=== PATIENT | male | born 1990 | race Caucasian/White ===

== ENCOUNTER 2017-06-10 20:46 | Emergency (ER) | payer SELFPAY ==
[~2017-06-10] VITALS: Ht 177.8 cm; Wt 56.2 kg
[2017-06-10 20:48] VITALS: BP 120/70; PULSE 88; RESP 20; TEMP 97.5; O2SAT 100
--- NOTE | 2017-06-10 21:09 | PD ---
HPI Chief Complaint: Chest Pain Time Seen by Provider: 20:57 Travel History International Travel<30 days: No Contact w/Intl Traveler<30days: No Traveled to known affect area: No History of Present Illness HPI The patient is a 26-year-old male that complains of mid substernal sharp, pleuritic chest pain for 6 days. The pain is on and off. He denies any diaphoresis, nausea, radiation of pain. He smokes 3 cigarettes a day. He does not have any history of heart disease or any other major medical problems. [facility] Social History Tobacco Use: Yes Allergies-Medications (Allergen,Severity, Reaction): Coded Allergies: No Known Allergies (Verified Allergy, Unknown, 06/10/17) Reported Meds & Prescriptions Reported Meds & Active Scripts Active Ibuprofen 600 Mg Tab 600 Mg PO TID Review of Systems Except as stated in HPI: all other systems reviewed are Neg Physical Exam Narrative GENERAL: The patient is alert, oriented 3 and slight apparent distress with his chest pain. His vital signs are normal. SKIN: Focused skin assessment warm/dry. HEAD: Atraumatic. Normocephalic. EYES: Pupils equal and round. No scleral icterus. No injection or drainage. ENT: No nasal bleeding or discharge. Mucous membranes pink and moist. NECK: Trachea midline. No JVD. CARDIOVASCULAR: Regular rate and rhythm. No murmur appreciated. I cannot reproduce the patient's chest pain by pressing on the chest wall. RESPIRATORY: No accessory muscle use. Clear to auscultation. Breath sounds equal bilaterally. GASTROINTESTINAL: Abdomen soft, non-tender, nondistended. Hepatic and splenic margins not palpable. MUSCULOSKELETAL: No obvious deformities. No clubbing. No cyanosis. No edema. NEUROLOGICAL: Awake and alert. No obvious cranial nerve deficits. Motor grossly within normal limits. Normal speech. PSYCHIATRIC: Appropriate mood and affect; insight and judgment normal. Data Data Last Documented VS Vital Signs Date Time Temp Pulse Resp B/P (MAP) Pulse Ox O2 Delivery O2 Flow Rate FiO2 06/10/17 21:20 98 06/10/17 21:20 Room Air 06/10/17 21:00 84 18 06/10/17 20:48 97.5 120/70 (87) Orders Orders Electrocardiogram (06/10/17 21:01) Basic Metabolic Panel (Bmp) (06/10/17 21:01) Ckmb (Isoenzyme) Profile (06/10/17 21:01) Complete Blood Count With Diff (06/10/17 21:) Troponin I (06/10/17 21:) Ecg Monitoring (06/10/17 21:) Iv Access Insert/Monitor (06/10/17 21:) Oximetry (06/10/17 21:01) Oxygen Administration (06/10/17 21:) Aspirin (Aspirin) (06/10/17 21:15) Sodium Chloride 0.9% Flush (Ns Flush) (06/10/17 21:15) Chest, Pa & Lat (06/10/17 21:01) CKMB (06/10/17 21:15) CKMB% (06/10/17 21:15) Al-Mag Hy-Si 40-40-4 Mg/Ml Liq (Mag-Al P (06/10/17 22:00) Lidocaine 2% Viscous (Xylocaine 2% Visco (06/10/17 22:00) Ketorolac Inj (Toradol Inj) (06/10/17 22:00) Labs Laboratory Tests Test 06/10/17 21:15 White Blood Count 12.2 TH/MM3 Red Blood Count 5.08 MIL/MM3 Hemoglobin 15.2 GM/DL Hematocrit 45.2 % Mean Corpuscular Volume 89.0 FL Mean Corpuscular Hemoglobin 29.9 PG Mean Corpuscular Hemoglobin Concent 33.6 % Red Cell Distribution Width 12.6 % Platelet Count 192 TH/MM3 Mean Platelet Volume 8.5 FL Neutrophils (%) (Auto) 82.2 % Lymphocytes (%) (Auto) 11.4 % Monocytes (%) (Auto) 6.1 % Eosinophils (%) (Auto) 0.1 % Basophils (%) (Auto) 0.2 % Neutrophils # (Auto) 10.1 TH/MM3 Lymphocytes # (Auto) 1.4 TH/MM3 Monocytes # (Auto) 0.7 TH/MM3 Eosinophils # (Auto) 0.0 TH/MM3 Basophils # (Auto) 0.0 TH/MM3 CBC Comment DIFF FINAL Differential Comment Blood Urea Nitrogen 8 MG/DL Creatinine 1.10 MG/DL Random Glucose 88 MG/DL Calcium Level 9.2 MG/DL Sodium Level 137 MEQ/L Potassium Level 4.2 MEQ/L Chloride Level 101 MEQ/L Carbon Dioxide Level 29.6 MEQ/L Anion Gap 6 MEQ/L Estimat Glomerular Filtration Rate 82 ML/MIN Total Creatine Kinase 421 U/L Creatine Kinase MB 1.9 NG/ML Creatine Kinase MB % 0.5 % Troponin I LESS THAN 0.02 NG/ML MDM Medical Decision Making Medical Screen Exam Complete: Yes Emergency Medical Condition: Yes Medical Record Reviewed: Yes Interpretation(s) The EKG shows a sinus rhythm of 64 and is normal. The chest x-ray shows no acute cardiopulmonary disease. The CBC shows a white count of 12,200 with 82% neutrophils but is otherwise unremarkable. The basic metabolic profile shows a GFR of 82, total CK of 421 but the troponin I is less than 0.02. The CK-MB and percentage CK-MB are normal. Differential Diagnosis Pericarditis, acute coronary syndrome-unlikely, pleurisy, pneumothorax-unlikely , costochondritis, chest wall pain, esophageal pain, gastrointestinal pain Narrative Course The patient likely has pleurisy. He will be given Motrin 600 mg 3 times daily. He needs to follow-up with a primary care physician. Diagnosis Primary Impression: Pleuritic chest pain Additional Instructions: This appears to be pleuritic type chest pain. This is not heart pain and it is not dangerous pain. If you take 600 mg. ibuprofen 3 times daily 600 mg that she usually goes away in 3 or 4 days. It is also important to quit smoking, this can be contributory to your pain. Med/Other Pt SpecificInfo: Prescription(s) given Scripts Ibuprofen (Ibuprofen) 600 Mg Tab 600 MG PO TID, #44 TAB 0 Refills Prov: Ramiro Waters MD 06/10/17 Disposition: 01 DISCHARGE HOME Condition: Stable Ramiro Waters MD Jun 10, 2017 21:09
[2017-06-10] MEDS ORDERED: SODIUM CHLORIDE 0.9% FLUSH 10 ML FLUSH IVF PRN (21:15)
[2017-06-10] MEDS ORDERED: ASPIRIN 325 MG TAB PO ONE (21:15)
[2017-06-10 21:20] VITALS: O2SAT 98
--- NOTE | 2017-06-10 21:23 | RADRPT ---
EXAM DATE/TIME: 06/10/2017 21:04 [facility] COMPARISON: No previous studies available for comparison. INDICATIONS : Chest pain. MEDICAL HISTORY : None. SURGICAL HISTORY : None. ENCOUNTER: Initial ACUITY: 1 day PAIN SCORE: 5/10 LOCATION: chest substernal. FINDINGS: The lungs are clear without infiltrate, nodule, or mass. There is no appreciable pleural effusion fo r technique. Heart and mediastinum are unremarkable. CONCLUSION: No acute cardiopulmonary disease. Ryan Simpson MD on June 10, 2017 at 21:21 Board Certified Radiologist. This report was verified electronically.
[2017-06-10 21:33] LABS: AUTOMATED NEUTROPHIL # 10.1 TH/MM3 (1.8-7.7); BASOPHIL % 0.2 % (0.0-2.0); EOSINOPHIL % 0.1 % (0.0-4.0); HEMATOCRIT 45.2 % (39.0-51.0); HEMOGLOBIN 15.2 GM/DL (13.0-17.0); LYMPH % 11.4 % (9.0-44.0); LYMPHOCYTE # 1.4 TH/MM3 (1.0-4.8); MEAN CORPUSCULAR HEMOGLOBIN 29.9 PG (27.0-34.0); MEAN CORPUSCULAR HGB CONC 33.6 % (32.0-36.0); MEAN PLATELET VOLUME 8.5 FL (7.0-11.0); MONO % 6.1 % (0.0-8.0); MONOCYTE # 0.7 TH/MM3 (0-0.9); NEUT % 82.2 % (16.0-70.0); PLATELET COUNT 192 TH/MM3 (150-450); RED BLOOD COUNT 5.08 MIL/MM3 (4.50-5.90); RED CELL DISTRIBUTION WIDTH 12.6 % (11.6-17.2); WHITE BLOOD COUNT 12.2 TH/MM3 (4.0-11.0)
[2017-06-10 21:35] LABS: CHLORIDE 101 MEQ/L (98-107); SODIUM (NA) 137 MEQ/L (136-145)
[2017-06-10 21:38] LABS: BICARBONATE 29.6 MEQ/L (21.0-32.0); CALCIUM 9.2 MG/DL (8.5-10.1); GLUCOSE,RANDOM 88 MG/DL (74-106)
[2017-06-10 21:39] LABS: BLOOD UREA NITROGEN 8 MG/DL (7-18)
[2017-06-10 21:42] LABS: GLOMERULAR FILTRATION RATE 82 ML/MIN (>89)
[2017-06-10 21:46] LABS: TROPONIN I LESS THAN 0.02 NG/ML (0.02-0.05)
[2017-06-10] MEDS ORDERED: KETOROLAC TROMETHAMINE 60 MG/2 ML (IM) VIAL IVP ONE (22:00)
[2017-06-10] MEDS ORDERED: LIDOCAINE VISCOUS 2% SOLN 15 ML UDC PO ONE (22:00)
[2017-06-10] MEDS ORDERED: ALUMINUM/MAGNESIUM/SIMETH 30 ML CUP PO ONE (22:00)
[2017-06-10] MEDS ORDERED: IBUP-232 PO (22:03)
[2017-06-10 22:31] VITALS: BP 122/70; PULSE 74; RESP 18; O2SAT 98
--- NOTE | 2017-06-11 09:19 | EKG ---
Date Performed: 06/10/2017 Time Performed: 21:00:56 PTAGE: 26 years EKG: Sinus rhythm WITH SINUS ARRHYTHMIA NORMAL ECG NO PREVIOUS TRACING DOCTOR: Darryn Mata Interpretating Date/Time 06/11/2017 09:18:20
== END 2017-06-10 22:35 | disposition home or self-care (01) ==
LOC: PHED 20:46
DX: R07.81 Pleurodynia (principal); Z72.0 Tobacco use
CPT/HCPCS: 71020; 80048; 82550; 82552; 84484; 85025; 93005; 96374; 99285; J1885

== ENCOUNTER 2017-06-21 18:28 | Emergency (ER) | payer SELFPAY ==
[~2017-06-21] VITALS: Ht 177.8 cm; Wt 61.5 kg
[~2017-06-21 18:28] MED LIST: IBUP-232 PO
[2017-06-21 18:29] VITALS: BP 124/75; PULSE 90; RESP 18; TEMP 98.1; O2SAT 97
--- NOTE | 2017-06-21 19:14 | RADRPT ---
EXAM DATE/TIME: 06/21/2017 18:53 [facility] COMPARISON: CHEST PA & LAT, June 10, 2017, 21:04. INDICATIONS : Chest discomfort and dysphagia. MEDICAL HISTORY : None. SURGICAL HISTORY : None. ENCOUNTER: Initial ACUITY: 2 weeks PAIN SCORE: 2/10 LOCATION: Bilateral chest FINDINGS: PA and lateral views of the chest demonstrate the lungs to be symmetrically aerated without evidence of mass, infiltrate or effusion. The cardiomediastinal contours are unremarkable. Osseous structure s are intact. CONCLUSION: No evidence of acute cardiopulmonary disease. Gianluca Hogue MD on June 21, 2017 at 19:11 Board Certified Radiologist. This report was verified electronically.
--- NOTE | 2017-06-21 20:52 | PD ---
HPI Chief Complaint: Chest Pain Time Seen by Provider: 20:28 Travel History International Travel<30 days: No Contact w/Intl Traveler<30days: No Traveled to known affect area: No History of Present Illness HPI Patient is 26-year-old male reports 3 days progressive scratchy throat getting worse to the point now he feels like he cannot swallow denies choking denies inability to swallow food but he says progressive to where he feels very irritated as if his throat was closing. PFSH Past Medical History Diminished Hearing: No Social History Alcohol Use: Yes (social) Tobacco Use: Yes Substance Use: No Allergies-Medications (Allergen,Severity, Reaction): Coded Allergies: No Known Allergies (Verified Allergy, Unknown, 06/21/17) Reported Meds & Prescriptions Reported Meds & Active Scripts Active Diphenhydramine Liq (Diphenhydramine HCl) 12.5 Mg/5 Ml Elix 12.5 Mg PO Q6H PRN Physical Exam Narrative GENERAL: no distress O2 sat normal SKIN: Warm and dry. HEAD: Atraumatic. Normocephalic. EYES: Pupils equal and round. No scleral icterus. No injection or drainage. ENT: No nasal bleeding or discharge. Mucous membranes pink and moist. no exudate no signs of infection no obvious narrowing NECK: Trachea midline. No JVD. CARDIOVASCULAR: Regular rate and rhythm. RESPIRATORY: No accessory muscle use. Clear to auscultation. Breath sounds equal bilaterally. GASTROINTESTINAL: Abdomen soft, non-tender, nondistended. Hepatic and splenic margins not palpable. MUSCULOSKELETAL: Extremities without clubbing, cyanosis, or edema. No obvious deformities. NEUROLOGICAL: Awake and alert. No obvious cranial nerve deficits. Motor grossly within normal limits. Five out of 5 muscle strength in the arms and legs. Normal speech. PSYCHIATRIC: Appropriate mood and affect; insight and judgment normal. Data Data Last Documented VS Orders Orders Electrocardiogram (06/21/17 ) Chest, Pa & Lat (06/21/17 ) Wgr-Dzts-Pk-Mg-Simeth Liq (Magic Mouthwa (06/21/17 21:00) Soft Tissue Neck (06/21/17 ) Group A Rapid Strep Screen (06/21/17 20:49) Influenzae A/B Antigen (06/21/17 20:50) Strep Culture (Group A) (06/21/17 21:25) Ed Discharge Order (06/21/17 22:56) [facility] Medical Decision Making Medical Screen Exam Complete: Yes Emergency Medical Condition: Yes Differential Diagnosis Strep pharyngitis versus bacterial tracheitis versus influenza versus foreign body esophagus versus viral infection Narrative Course Patient's lateral soft tissue neck has no signs of any narrowing of the airway his rapid strep is negative. He is satting well his EKG chest x-ray all negative he is discharged follow-up as an outpatient Magic mouthwash drink to numb up his airway and throat had some moderate relief and is discharged Diagnosis Primary Impression: Sore throat Patient Instructions: General Instructions, Sore Throat in Children (ED) Scripts Diphenhydramine Liq (Diphenhydramine Liq) 12.5 Mg/5 Ml Elix 12.5 MG PO Q6H Y for ALLERGIES, #1 BOTTLE 0 Refills Prov: Mic Roe MD 06/21/17 Disposition: 01 DISCHARGE HOME Condition: Good Mic Roe MD Jun 21, 2017 20:52
[2017-06-21] MEDS ORDERED: DIPHENHY/LIDO/MAG/ALUM MOUTHWASH (Adult/Peds) 60 ML BTL SWISH-SWAL ONE (21:00)
--- NOTE | 2017-06-21 21:34 | RADRPT ---
EXAM DATE/TIME: 06/21/2017 21:17 [facility] COMPARISON: No previous studies available for comparison. INDICATIONS : Dysphagia, reflux. MEDICAL HISTORY : None. SURGICAL HISTORY : None. ENCOUNTER: Initial ACUITY: 2 weeks PAIN SCORE: 8/10 LOCATION: esophagus. FINDINGS: Two view examination of the soft tissues of the neck demonstrates the hypopharyngeal airway to have a grossly normal configuration. The trachea is midline. No radiopaque foreign bodies are seen. CONCLUSION: Radiographic appearance of the soft tissues of the neck is within normal limits. Gianluca Hogue MD on June 21, 2017 at 21:31 Board Certified Radiologist. This report was verified electronically.
[2017-06-21] MEDS ORDERED: DIPH12.5S PO (22:53)
--- NOTE | 2017-06-22 16:49 | EKG ---
Date Performed: 06/21/2017 Time Performed: 19:16:12 PTAGE: 26 years EKG: Sinus rhythm WITH SINUS ARRHYTHMIA POSSIBLE LEFT ATRIAL ENLARGEMENT POSSIBLE RIGHT VENTRICULAR CONDUCTION DELAY B ORDERLINE ECG PREVIOUS TRACING : 06/10/2017 21.00 Since previous tracing, no significant change noted DOCTOR: Corey Boo Interpretating Date/Time 06/22/2017 16:48:48
== END 2017-06-22 00:08 | disposition home or self-care (01) ==
LOC: NEPC 18:28
DX: J02.9 Acute pharyngitis, unspecified (principal); R94.31 Abnormal electrocardiogram [ECG] [EKG]; Z72.0 Tobacco use
CPT/HCPCS: 70360; 71046; 87081; 87804; 87880; 93005

== ENCOUNTER 2017-11-14 09:41 | Emergency (ER) | payer SELFPAY ==
[~2017-11-14] VITALS: Ht 177.8 cm; Wt 59.0 kg
[~2017-11-14 09:41] MED LIST changes: +DIPH12.5S PO; -IBUP-232 PO
[2017-11-14 09:48] VITALS: BP 100/64; PULSE 70; RESP 18; TEMP 97.8; O2SAT 99
--- NOTE | 2017-11-14 09:57 | PD ---
HPI Chief Complaint: Pain: Acute or Chronic Time Seen by Provider: 09:57 Travel History International Travel<30 days: No Contact w/Intl Traveler<30days: No Traveled to known affect area: No History of Present Illness HPI 27-year-old male came to the emergency room with multiple complains of difficulty eating because of difficulty swallowing difficulty burping or belching, difficulty urinating and difficulty defecating all because he feels like everything is stuck in his chest and abdomen. Apparently the symptoms have been going on for more than 6 months. He says he has lost about 5-6 pounds he thinks since then. He has been having difficulty eating because of all the symptoms. He has to contort his body into different positions in order to burp or urinate or defecate. Patient seems pretty anxious and worked up because of the symptoms. He does not have a primary care. He moved from [place] last February. He says he was seen in the emergency room once earlier this year for the symptoms but the symptoms have continued. He works as a cook at a restaurant. His vital signs are within normal limits. No history of fever or chills. No history of severe pain anywhere. [facility] Past Medical History Narrative Medical List of his past medical, surgical, social and family history is reviewed from the nursing note Diminished Hearing: No Immunizations Current: Yes Social History Alcohol Use: Yes (social) Tobacco Use: Yes Substance Use: No Allergies-Medications (Allergen,Severity, Reaction): Coded Allergies: No Known Allergies (Verified Allergy, Unknown, 11/14/17) Comments No known drug allergies. Reported Meds & Prescriptions Reported Meds & Active Scripts Active Omeprazole 20 Mg Tab 20 Mg PO DAILY Macrobid (Nitrofurantoin Monoh/Nitrofur Macro) 100 Mg Cap 100 Mg PO BID 10 Days Narrative Medication List of his home medications reviewed from the nursing note Review of Systems Except as stated in HPI: all other systems reviewed are Neg Physical Exam Narrative GENERAL: Awake, alert, anxious, no obvious distress SKIN: Focused skin assessment warm/dry. HEAD: Atraumatic. Normocephalic. EYES: Pupils equal and round. No scleral icterus. No injection or drainage. ENT: No nasal bleeding or discharge. Mucous membranes pink and moist. NECK: Trachea midline. No JVD. CARDIOVASCULAR: Regular rate and rhythm. No murmur appreciated. RESPIRATORY: No accessory muscle use. Clear to auscultation. Breath sounds equal bilaterally. GASTROINTESTINAL: Abdomen soft, non-tender, nondistended. Hepatic and splenic margins not palpable. MUSCULOSKELETAL: No obvious deformities. No clubbing. No cyanosis. No edema. NEUROLOGICAL: Awake and alert. No obvious cranial nerve deficits. Motor grossly within normal limits. Normal speech. PSYCHIATRIC: Appropriate mood and affect; insight and judgment normal. Data Data Last Documented VS Orders Orders Complete Blood Count With Diff (11/14/17 10:38) Comprehensive Metabolic Panel (11/14/17 10:38) Lipase (11/14/17 10:38) Urinalysis - C+S If Indicated (11/14/17 10:38) Abdomen, Flat & Upright (11/14/17 ) Iv Access Insert/Monitor (11/14/17 10:38) Ecg Monitoring (11/14/17 10:38) Oximetry (11/14/17 10:38) Sodium Chloride 0.9% Flush (Ns Flush) (11/14/17 10:45) Chest, Pa & Lat (11/14/17 ) Electrocardiogram (11/14/17 10:30) Urine Culture (11/14/17 10:45) Nitrofurantoin Monohyd Macrocr (Macrobid (11/14/17 11:45) Ed Discharge Order (11/14/17 12:23) Labs Laboratory Tests Test 11/14/17 10:45 11/14/17 10:48 Urine Color YELLOW Urine Turbidity CLEAR Urine pH 7.0 Urine Specific [place] 1.036 Urine Protein 30 mg/dL Urine Glucose (UA) NEG mg/dL Urine Ketones NEG mg/dL Urine Occult Blood NEG Urine Nitrite NEG Urine Bilirubin NEG Urine Urobilinogen 8.0 MG/DL Urine Leukocyte Esterase MOD Urine RBC 3 /hpf Urine WBC 23 /hpf Urine Squamous Epithelial Cells <1 /hpf Urine Bacteria OCC /hpf Urine Hyaline Casts 2 /lpf Urine Mucus MANY /lpf Microscopic Urinalysis Comment CULTURE INDICATED White Blood Count 5.1 TH/MM3 Red Blood Count 5.25 MIL/MM3 Hemoglobin 16.0 GM/DL Hematocrit 46.9 % Mean Corpuscular Volume 89.3 FL Mean Corpuscular Hemoglobin 30.5 PG Mean Corpuscular Hemoglobin Concent 34.1 % Red Cell Distribution Width 13.4 % Platelet Count 191 TH/MM3 Mean Platelet Volume 8.0 FL Neutrophils (%) (Auto) 57.3 % Lymphocytes (%) (Auto) 29.0 % Monocytes (%) (Auto) 11.4 % Eosinophils (%) (Auto) 1.7 % Basophils (%) (Auto) 0.6 % Neutrophils # (Auto) 2.9 TH/MM3 Lymphocytes # (Auto) 1.5 TH/MM3 Monocytes # (Auto) 0.6 TH/MM3 Eosinophils # (Auto) 0.1 TH/MM3 Basophils # (Auto) 0.0 TH/MM3 CBC Comment DIFF FINAL Differential Comment Blood Urea Nitrogen 8 MG/DL Creatinine 0.96 MG/DL Random Glucose 78 MG/DL Total Protein 7.5 GM/DL Albumin 4.3 GM/DL Calcium Level 9.4 MG/DL Alkaline Phosphatase 68 U/L Aspartate Amino Transf (AST/SGOT) 22 U/L Alanine Aminotransferase (ALT/SGPT) 25 U/L Total Bilirubin 0.5 MG/DL Sodium Level 139 MEQ/L Potassium Level 4.1 MEQ/L Chloride Level 103 MEQ/L Carbon Dioxide Level 28.2 MEQ/L Anion Gap 8 MEQ/L Estimat Glomerular Filtration Rate 115 ML/MIN Lipase 113 U/L [facility] Medical Decision Making Medical Screen Exam Complete: Yes Emergency Medical Condition: Yes Medical Record Reviewed: Yes Differential Diagnosis Gastritis, anxiety, psychosomatic disorder Narrative Course 12:20 PM blood test results are back and within normal limits. UA suggestive of a UTI. He was given 1 dose of Macrobid. X-ray of the chest and abdomen and pelvis are negative as well. I am comfortable discharging this patient home. He will go home with a prescription for omeprazole Procedures Procedure Narrative Twelve-lead EKG was reviewed by me. Normal sinus rhythm, normal axis, nonspecific ST-T wave changes, bradycardia. Heart rate of 54 bpm. EKG Prior to Arrival: No Diagnosis Primary Impression: UTI (urinary tract infection) Qualified Codes: N39.0 - Urinary tract infection, site not specified Additional Impression: Gastritis Qualified Codes: K29.50 - Unspecified chronic gastritis without bleeding Referrals: [facility] Additional Instructions: Take the medication as per the prescription direction. Follow-up with [facility] who is address has been provided to you on this discharge instruction. Return to the ER if condition worsens any other new concerns. Avoid greasy and acidic food since it will make his symptoms worse. Eat mostly bland diet until you are on the medication. Med/Other Pt SpecificInfo: Prescription(s) given Scripts Omeprazole (Omeprazole) 20 Mg Tab 20 MG PO DAILY, #30 TAB 0 Refills Prov: Mikey Gustafson MD 11/14/17 Nitrofurantoin Monohydrate Macrocrystals (Macrobid) 100 Mg Cap 100 MG PO BID for Infection for 10 Days, #20 CAP 0 Refills Prov: Mikey Gustafson MD 11/14/17 Disposition: 01 DISCHARGE HOME Condition: Stable Mikey Gustafson MD Nov 14, 2017 09:57
[2017-11-14] MEDS ORDERED: SODIUM CHLORIDE 0.9% FLUSH 10 ML FLUSH IV FLUSH PRN (10:45)
[2017-11-14 10:59] VITALS: RESP 16; O2SAT 98
[2017-11-14 11:18] LABS: AUTOMATED NEUTROPHIL # 2.9 TH/MM3 (1.8-7.7); BASOPHIL % 0.6 % (0.0-2.0); EOSINOPHIL # 0.1 TH/MM3 (0-0.4); EOSINOPHIL % 1.7 % (0.0-4.0); HEMATOCRIT 46.9 % (39.0-51.0); LYMPHOCYTE # 1.5 TH/MM3 (1.0-4.8); MEAN CELL VOLUME 89.3 FL (80.0-100.0); MEAN CORPUSCULAR HEMOGLOBIN 30.5 PG (27.0-34.0); MEAN CORPUSCULAR HGB CONC 34.1 % (32.0-36.0); MONO % 11.4 % (0.0-8.0); MONOCYTE # 0.6 TH/MM3 (0-0.9); NEUT % 57.3 % (16.0-70.0); PLATELET COUNT 191 TH/MM3 (150-450); RED BLOOD COUNT 5.25 MIL/MM3 (4.50-5.90); RED CELL DISTRIBUTION WIDTH 13.4 % (11.6-17.2); WHITE BLOOD COUNT 5.1 TH/MM3 (4.0-11.0)
[2017-11-14 11:22] LABS: BACTERIA, URINE OCC /hpf; BILIRUBIN, URINE NEG (NEG); BLOOD, URINE NEG (NEG); GLUCOSE,URINE NEG (NEG); HYALINE CAST, URINE 2 /lpf (RARE); KETONE, URINE NEG (NEG); MUCUS URINE MANY /lpf (OCC); NITRITE,URINE NEG (NEG); SQUAMOUS EPITHELIAL CELL URINE <1 /hpf (0-5); URINE COLOR YELLOW (YELLW/STRAW); URINE LEUKOCYTE ESTERASE MOD (NEG)
[2017-11-14 11:33] LABS: ALBUMIN 4.3 GM/DL (3.4-5.0); AST (GOT) 22 U/L (15-37); BICARBONATE 28.2 MEQ/L (21.0-32.0); BLOOD UREA NITROGEN 8 MG/DL (7-18); CALCIUM 9.4 MG/DL (8.5-10.1); CHLORIDE 103 MEQ/L (98-107); CREATININE 0.96 MG/DL (0.60-1.30); GLOMERULAR FILTRATION RATE 115 ML/MIN (>89); GLUCOSE,RANDOM 78 MG/DL (74-106); SODIUM (NA) 139 MEQ/L (136-145)
[2017-11-14 11:34] LABS: ALT (GPT) 25 U/L (12-78)
[2017-11-14 11:36] LABS: ALKALINE PHOSPHATASE 68 U/L (45-117); TOTAL BILIRUBIN ADULT 0.5 MG/DL (0.2-1.0); TOTAL PROTEIN 7.5 GM/DL (6.4-8.2)
--- NOTE | 2017-11-14 11:37 | RADRPT ---
EXAM DATE: 11/14/2017 11:22 AM EDT AGE/SEX: 27 years / Male INDICATIONS: Abdominal pain. CLINICAL DATA: This is the patient's initial encounter. Patient reports that signs and symptoms have been present for 2 months and indicates a pain score of 6/10. MEDICAL/SURGICAL HISTORY: None. None. COMPARISON: No prior [facility] exams available for comparison. FINDINGS: The bowel gas is nonspecific. There are no signs of obstruction or free air for technique . No definite calcified stones are identified for technique. CONCLUSION: Unremarkable study. Electronically signed by: Anthony Simpson MD 11/14/2017 11:36 AM EDT
[2017-11-14] MEDS ORDERED: NITROFURANTOIN MONOHYD MACROCR 100 MG CAP PO ONE (11:45)
--- NOTE | 2017-11-14 12:17 | RADRPT ---
EXAM DATE: 11/14/2017 11:24 AM EDT AGE/SEX: 27 years / Male INDICATIONS: Chest pain and acid reflux. CLINICAL DATA: This is the patient's initial encounter. Patient reports that signs and symptoms have been present for 1 day and indicates a pain score of 3/10. MEDICAL/SURGICAL HISTORY: None. None. COMPARISON: No prior exams available for comparison. FINDINGS: PA and lateral views of the chest demonstrate the lungs to be symmetrically aerated without evidence of mass, infiltrate or effusion. The cardiomediastinal contours are unremarkable. Osseous structures are intact. CONCLUSION: No acute cardiopulmonary process. Electronically signed by: Gianluca Carrera MD 11/14/2017 12:15 PM EDT
[2017-11-14] MEDS ORDERED: MACR100C2 PO (12:22)
[2017-11-14] MEDS ORDERED: OMEP20TA93 PO (12:22)
--- NOTE | 2017-11-14 18:15 | EKG ---
Date Performed: 11/14/2017 Time Performed: 10:30:44 PTAGE: 27 years EKG: SINUS BRADYCARDIA ST ELEVATION, PROBABLY EARLY REPOLARIZATION BORDERLINE ECG Since the PREVIOUS TRACING , no significant change noted DOCTOR: Jay Jay Lazar Interpretating Date/Time 11/14/2017 18:15:03
== END 2017-11-14 12:49 | disposition home or self-care (01) ==
LOC: NEPD 09:41
DX: N39.0 Urinary tract infection, site not specified (principal); K29.50 Unspecified chronic gastritis without bleeding; R00.1 Bradycardia, unspecified; Z72.0 Tobacco use
CPT/HCPCS: 71046; 74019; 80053; 81001; 83690; 85025; 87086; 93005; 99285